=== PATIENT | female | born 1995 | race American Indian/Alaskan Native ===

== ENCOUNTER 2017-03-10 08:18 | Emergency (ER) | payer BC, OTHER ==
[2017-03-10 08:30] VITALS: BMI 35.0
[2017-03-10 08:32] VITALS: TEMP 98.4
--- NOTE | 2017-03-10 09:16 | ED PDOC ---
Arrival/HPI - General Chief Complaint: Upper Extremity Problem/Injury Time Seen by Provider: 03/10/17 09:08 Historian: Patient - History of Present Illness Narrative History of Present Illness (Text): 03/10/17 09:08 A 21 year old female presents to the emergency department complaining of pain to 2nd digit on right hand after injury last night. Patient reports she slammed her finger in the car door. She states this morning pain worsened and describes it as a constant throbbing sensation. Patient notes decreased range of motion but denies any other injuries, fever, nausea, vomiting, diarrhea, abdominal pain , chest pain, shortness of breath or any other complaints. PMD: Dr. Harley Time/Duration: Other (Last night) Symptom Course: Worsening Quality: Other Context: Other Past Medical History - Provider Review Nursing Documentation Reviewed: Yes - Infectious Disease Hx of Infectious Diseases: None - Tetanus Immunization Tetanus Immunization: Unknown - Past Medical History Past Medical History: No Previous - Cardiac Hx Cardiac Disorders: No - Pulmonary Hx Respiratory Disorders: No - Neurological Hx Neurological Disorder: No - HEENT Hx HEENT Disorder: No - Renal Hx Renal Disorder: No - Endocrine/Metabolic Hx Endocrine Disorders: No - Hematological/Oncological Hx Blood Disorders: No - Integumentary Hx Dermatological Disorder: No - Musculoskeletal/Rheumatological Hx Musculoskeletal Disorders: No - Gastrointestinal Hx Gastrointestinal Disorders: No - Genitourinary/Gynecological Hx Genitourinary Disorders: No Other/Comment: cyst - Psychiatric Hx Psychophysiologic Disorder: No Hx Substance Use: No - Past Surgical History Past Surgical History: No Previous - Surgical History Hx Section: Yes (2011) Other/Comment: cyst removal - Anesthesia Hx Anesthesia: Yes Hx Anesthesia Reactions: No Hx Malignant Hyperthermia: No - Suicidal Assessment Feels Threatened In Home Enviroment: No Family/Social History - Physician Review Nursing Documentation Reviewed: Yes Family/Social History: No Known Family HX Smoking Status: Light Smoker < 10 Cigarettes Daily Hx Alcohol Use: No Hx Substance Use: No Hx Substance Use Treatment: No Allergies/Home Meds Allergies/Adverse Reactions: Allergies latex Allergy (Verified 03/10/17 08:31) SWELLING Home Medications: Home Meds Medication Instructions Recorded Confirmed Vit Calc,Iron,Folic 1 tab PO DAILY 03/10/17 03/10/17 [ Vitamins] Review of Systems - Physician Review All systems were reviewed & negative as marked: Yes - Review of Systems Constitutional: absent: Fevers Respiratory: absent: SOB Cardiovascular: absent: Chest Pain Gastrointestinal: absent: Abdominal Pain, Diarrhea, Nausea, Vomiting Musculoskeletal: Other (2nd digit pain on right hand, decreased ROM) Physical Exam - Physical Exam Narrative Physical Exam (Text): Head: Atraumatic. Normocephalic. Neck: Supple. Full ROM. Cardiovascular: Regular rate. Regular rhythm. Cap refill less than 2 seconds to hand digits. Pulmonary/Chest: No evidence of respiratory distress. Back: No CVA tenderness. Extremities: No wrist pain. No pain to right first, third, fourth or fifth digits. No subungual hematoma. Pain on palpation to PIP and DIP joint, no MCP joint pain. No deformity. Pain with movement as DIP and PIP joint but able to lift against resistance. Skin: Skin is warm and dry. No laceration. Neurological: Alert, awake, and oriented. Median/radial/ulnar motor and sensory function intact, sensation intact to light touch, two point discrimination in distal finger right hand. Psychiatric: Good eye contact. Normal interaction, affect, and behavior. Vital Signs Reviewed: Yes Vital Signs Temp Pulse Resp BP Pulse Ox 03/10/17 08:31 98.4 F 76 15 135/86 100 Temperature: Afebrile Blood Pressure: Normal Pulse: Regular Respiratory Rate: Normal Appearance: Positive for: Well-Appearing, Non-Toxic, Comfortable Pain Distress: None Mental Status: Positive for: Alert and Oriented X 3 Medical Decision Making ED Course and Treatment: 03/10/17 09:08 Impression: A 21 year old female with pain to 2nd digit on right hand after injury. Patient notes decreased ROM. Differential Diagnosis included but are not limited to: Sprain vs. Fracture Plan: -- Right hand 2nd digit xray -- Reassess and disposition Progress Notes: Report Date : 03/10/2017 09:51:11 PROCEDURE: Right Index finger radiographs. Dictator : Deana Jones MD IMPRESSION: No acute fracture or dislocation. Patient with no large subungal hematoma noted. Nail base is intact with no disruption or active bleeding. She has focal pain to PIP and DIP joint, limited ROM. No obvious deformity noted however. Limitations of xray reviewed with patient, stressed need for ortho follow-up to evaluate for fracture or ligamentous injury. Patient with dressing applied to DIP joint as well as finger splint, advised rest, no strenuous activity, and orthopedic re-evaluation. 03/10/17 10:07 - RAD Interpretation Radiology Orders: 03/10/17 09:18 HAND RIGHT 2ND DIGIT (FINGER) [RAD] Stat - Scribe Statement The provider has reviewed the documentation as recorded by the Scribe Nohemy Archibald Provider Scribe Attestation: All medical record entries made by the Scribe were at my direction and personally dictated by me. I have reviewed the chart and agree that the record accurately reflects my personal performance of the history, physical exam, medical decision making, and the department course for this patient. I have also personally directed, reviewed, and agree with the discharge instructions and disposition. Disposition/Present on Arrival - Present on Arrival Any Indicators Present on Arrival: No History of DVT/PE: No History of Uncontrolled Diabetes: No Urinary Catheter: No History of Decub. Ulcer: No History Surgical Site Infection Following: None - Disposition Have Diagnosis and Disposition been Completed?: Yes Diagnosis: Finger contusion Disposition: HOME/ ROUTINE Disposition Time: 09:45 Patient Plan: Discharge Patient Problems: Current Active Problems Problem Status Diagnosed Finger contusion Acute Condition: GOOD Discharge Instructions (ExitCare): Finger Fracture (ED) Additional Instructions: You have a finger injury. Despite your xrays revealing no fracture today, if you have persistent pain or difficulty, a broken bone or ligament injury cannot be excluded, you MUST get rechecked by an orthopedic physician. Wear splint as directed. For any persistent pain, any swelling, any redness, any bleeding, any persistent difficulty bending, get rechecked. Follow-up with your physician or and orthopedic doctor in 1-2 days. Take Tylenol or Motrin for pain. Referrals: Freddie Harley [Primary Care Provider] - Follow up with primary [facility] [Outside] - Follow up with primary [facility] [Outside] - Follow up with primary Forms: WORK NOTE
--- NOTE | 2017-03-10 09:52 | RAD ---
PROCEDURE: Right Index finger radiographs. HISTORY: crush injury to distal second finger COMPARISON: None. TECHNIQUE: AP radiograph of the right hand, as well as spot oblique and lateral images of index finger were obtained. FINDINGS: RIGHT INDEX FINGER: Normal right index finger, without acute fracture or focal lesion. Remainder of the right hand (as seen on the AP view) grossly intact. JOINTS: Normal. SOFT TISSUES: Normal. OTHER FINDINGS: None. IMPRESSION: No acute fracture or dislocation.
[2017-03-10 10:18] VITALS: BP 122/73; PULSE 78; RESP 16; O2SAT 99
== END 2017-03-10 10:17 | disposition home or self-care (01) ==
LOC: ED 08:18
DX: S60.021A Contusion of right index finger without damage to nail, initial encounter (principal); W23.0XXA Caught, crushed, jammed, or pinched between moving objects, initial encounter; Y92.89 Other specified places as the place of occurrence of the external cause

== ENCOUNTER 2017-05-23 22:12 | Emergency (ER) | payer BC ==
[2017-05-23 22:45] VITALS: BMI 35.5
[2017-05-23 23:13] VITALS: RESP 20; TEMP 97.9
[2017-05-23 23:47] LABS: URINE BILIRUBIN NEGATIVE (NEGATIVE); URINE BLOOD LARGE (NEGATIVE); URINE GLUCOSE (UA) NEGATIVE (NEGATIVE); URINE LEUKOCYTE ESTERASE NEGATIVE Leu/uL (NEGATIVE); URINE NITRATE NEGATIVE (NEGATIVE); URINE PROTEIN NEGATIVE mg/dL (<30 mg/dL)
[2017-05-23 23:52] LABS: URINE APPEARANCE SL CLOUDY (CLEAR); URINE COLOR YELLOW (YELLOW)
[2017-05-23 23:57] LABS: BASO # 0.05 K/mm3 (0.0-2.0); BASO % 0.6 % (0.0-3.0); EOS # 0.3 (0.0-0.7); EOS % 2.8 % (1.5-5.0); GRAN # 4.97 (1.4-6.5); GRAN % 56.4 % (50.0-68.0); HEMOGLOBIN 12.3 gm/dL (12.0-16.0); LYMPH # 2.9 (1.2-3.4); LYMPH % 32.6 % (22.0-35.0); MEAN CELL VOLUME 80.5 fL (80.0-105.0); MEAN CORPUSCULAR HEMOGLOBIN 26.3 pg (25.0-35.0); MEAN CORPUSCULAR HGB CONC 32.7 g/dl (31.0-37.0); MEAN PLATELET VOLUME 9.6 fl (7.0-11.0); MONO # 0.7 (0.1-0.6); MONO % 7.6 % (1.0-6.0); PLATELET COUNT 372 10^3/uL (120.0-450.0); RBC 4.67 10^6/uL (3.5-6.1); RED CELL DISTRIBUTION WIDTH 14.6 % (11.5-14.5); WHITE BLOOD COUNT 8.8 10^3/ul (4.5-11.0)
--- NOTE | 2017-05-24 00:02 | ED PDOC ---
Arrival/HPI <Loki Perez - Last Filed: 05/24/17 01:00> - General Historian: Patient <Yessenia Honeycutt PA-C - Last Filed: 05/24/17 18:31> - General Chief Complaint: Female Genitourinary Time Seen by Provider: 05/23/17 22:48 - History of Present Illness Narrative History of Present Illness (Text): 05/23/17 23:59 Patient is ~ 8 weeks ,reports 1 day history of vaginal bleeding, with crampy lower abdominal pain which started at 3 PM this afternoon. Otherwise: (- ) N/V, (-) fever, (-) urinary symptoms, (-) prior salpingitis, (-) prior ectopic . Has (+) care and (+) prior OB ultrasound - one week ago at her OB doctor's office and was told that she may miscarry soon. OB Abel (Yessenia Honeycutt PA-C) Past Medical History - Provider Review Nursing Documentation Reviewed: Yes - Infectious Disease Hx of Infectious Diseases: None - Psychiatric Hx Substance Use: No - Surgical History Hx Section: Yes (x1) - Anesthesia Hx Anesthesia: Yes Hx Anesthesia Reactions: No Hx Malignant Hyperthermia: No <Yessenia Honeycutt PA-C - Last Filed: 05/24/17 18:31> Family/Social History - Physician Review Nursing Documentation Reviewed: Yes Family/Social History: No Known Family HX Smoking Status: Never Smoked Hx Alcohol Use: No Hx Substance Use: No <Yessenia Honeycutt PA-C - Last Filed: 05/24/17 18:31> Allergies/Home Meds <Loki Perez - Last Filed: 05/24/17 01:00> <Yessenia Honeycutt PA-C - Last Filed: 05/24/17 18:31> Allergies/Adverse Reactions: Allergies No Known Allergies Allergy (Verified 05/23/17 22:36) Home Medications: Home Meds Medication Instructions Recorded Confirmed No Known Home Med 05/23/17 05/23/17 Review of Systems - Review of Systems Constitutional: Normal. absent: Fatigue, Weight Change, Fevers Respiratory: Normal. absent: SOB, Cough, Sputum Cardiovascular: Normal. absent: Chest Pain, Palpitations, Edema Gastrointestinal: Normal, Abdominal Pain. absent: Stool Changes, Appetite Changes Genitourinary Female: Normal, Vaginal Bleeding. absent: Dysuria, Frequency, Vaginal Discharge Skin: Normal. absent: Rash, Pruritis, Skin Lesions <Yessenia Honeycutt PA-C - Last Filed: 05/24/17 18:31> Physical Exam <Loki Perez - Last Filed: 05/24/17 01:00> <Yessenia Honeycutt PA-C - Last Filed: 05/24/17 18:31> - Physical Exam Narrative Physical Exam (Text): 05/24/17 00:00 GENERAL APPEARANCE: Patient is awake, alert, oriented x 3, in no acute distress. SKIN: Warm, dry; (-) cyanosis. EYES: (-) conjunctival pallor. ENMT: Mucous membranes moist. NECK: (-) tenderness, (-) stiffness, (-) lymphadenopathy. CHEST AND RESPIRATORY: (-) rales, (-) rhonchi, (-) wheezes; breath sounds equal bilaterally. HEART AND CARDIOVASCULAR: (-) irregularity; (-) murmur, (-) gallop. ABDOMEN AND GI: Soft; (-) tenderness. EXTREMITIES: (-) deformity. NEURO AND PSYCH: Mental status as above; (-) focal findings. (Yessenia Honeycutt PA-C) Vital Signs Temp Pulse Resp BP Pulse Ox 05/24/17 01:11 70 20 143/69 100 05/23/17 22:38 97.9 F 73 20 144/76 99 Medical Decision Making <Loki Perez - Last Filed: 05/24/17 01:00> <Yessenia Honeycutt PA-C - Last Filed: 05/24/17 18:31> ED Course and Treatment: 05/24/17 00:01 Patient is ~ 8 weeks ,reports 1 day history of vaginal bleeding, with crampy lower abdominal pain which started at 3 PM this afternoon. Based on history likely threatened miscarriage. Plan: -- Labs -- Urinalysis -- Reassess and disposition -- US TV 05/24/17 01:25 Lab results reviewed, hemoglobin is 12.3, hematocrit 37.6, potassium is 3.4, beta Quant is 1076, type and screen O+. Urinalysis showed positive blood but no evidence of infection. Transvaginal ultrasound : shows empty uterus with no IUP, no sac, endometrium measures 1.5 cm, +fluid in the cul-de-sac, ?small fluid in the cervix, as per smog technician. Lab and ultrasound results discussed the patient in great detail. Patient given a dose of KCl 40 mEq by mouth. Patient advised that she likely has a miscarriage and that she will need to follow up with her OB doctor in 2 days for reevaluation and follow-up. Patient states she fully agrees with and understands discharge instructions. States that she agrees with the plan and disposition. Verbalized and repeated discharge instructions and plan. I have given the patient opportunity to ask any additional questions. Follow up with OB physician in 1-2 days without fail. Return to the emergency room at any time for any new or worsening symptoms. (Yinka MELGOZA,Yessenia Arzola) - Lab Interpretations Lab Results: 05/23/17 23:43 05/23/17 23:43 Lab Results 05/24/17 01:16: Blood Type Confirm O POSITIVE 05/24/17 01:05: Blood Type O POSITIVE, Antibody Screen Negative, BBK History Checked No verified bt 05/23/17 23:43: Beta HCG, Quant 1076.20 H 05/23/17 23:43: Sodium 138, Potassium 3.4 L, Chloride 105, Carbon Dioxide 23, Anion Gap 13, BUN 11, Creatinine 0.9, Est GFR ( Amer) > 60, Est GFR (Non- Af Amer) > 60, Random Glucose 85, Calcium 9.2, Total Bilirubin 0.3, AST 31, ALT 34, Alkaline Phosphatase 50, Total Protein 7.6, Albumin 4.0, Globulin 3.5, Albumin/Globulin Ratio 1.1 05/23/17 23:43: WBC 8.8, RBC 4.67, Hgb 12.3, Hct 37.6, MCV 80.5, MCH 26.3, MCHC 32.7, RDW 14.6 H, Plt Count 372, MPV 9.6, Gran % 56.4, Lymph % (Auto) 32.6, [place] % (Auto) 7.6 H, Eos % (Auto) 2.8, Baso % (Auto) 0.6, Gran # 4.97, Lymph # 2.9, [place] # 0.7 H, Eos # 0.3, Baso # 0.05 05/23/17 23:26: Urine Color Yellow, Urine Appearance Sl cloudy, Urine pH 6.0, Ur Specific Ul[place] >= 1.030, Urine Protein Negative, Urine Glucose (UA) Negative, Urine Ketones Negative, Urine Blood Large H, Urine Nitrate Negative, Urine Bilirubin Negative, Urine Urobilinogen 1.0 H, Ur Leukocyte Esterase Negative, Urine RBC 2 - 5, Urine WBC 0 - 2, Ur Epithelial Cells 3 - 4, Urine Bacteria Small - RAD Interpretation Narrative RAD Interpretations (Text): 05/24/17 18:31 US TV : FINDINGS: The examination demonstrates no evidence of intrauterine in there is no intrauterine gestational sac identified. There is no endometrial fluid. There is questionable trace endocervical fluid. The uterus measures 11.1 x 5.8 x 8.2 cm. There is no uterine mass. The endometrium measures 15 mm in width. The right ovary measures 3.1 x 1.4 x 2.7 cm. Normal color flow is demonstrated. There is no mass identified. The left ovary is not visualized by transabdominal or transvaginal technique. There is small amount of free fluid seen in the cul-de-sac. IMPRESSION: No intrauterine gestation identified. Cannot exclude ectopic on the basis of this examination. There is no direct evidence of ectopic gestation. Questionable trace endocervical fluid. Small amount of fluid in the cul-de-sac common nonspecific. Preliminary interpretation of this examination was reported by [facility] at 1:39 a.m. on 05/24/2017. There is concurrence of this report with the preliminary interpretation. (Yinka MELGOZA,Yessenia Arzola) Radiology Orders: 05/23/17 22:48 OB TRANSVAGINAL [US] Stat - Medication Orders Current Medication Orders: Discontinued Medications Potassium Chloride (Potassium Chloride Oral Soln) 40 meq PO STAT STA Stop: 05/24/17 01:31 Last Admin: 05/24/17 01:47 Dose: 40 meq - PA / SETTLEMENT PROCESSOR / Resident Statement JOHANA has reviewed & agrees with the documentation as recorded. / has examined the patient and agrees with the treatment plan. <Loki Perez - Last Filed: 05/24/17 01:00> - PA / SETTLEMENT PROCESSOR / Resident Statement MD/DO has reviewed & agrees with the documentation as recorded. <Yessenia Honeycutt PA-C - Last Filed: 05/24/17 18:31> Disposition/Present on Arrival <Loki Perez - Last Filed: 05/24/17 01:00> - Present on Arrival Any Indicators Present on Arrival: No History of DVT/PE: No History of Uncontrolled Diabetes: No Urinary Catheter: No History of Decub. Ulcer: No History Surgical Site Infection Following: None - Disposition Have Diagnosis and Disposition been Completed?: Yes Disposition Time: :28 Patient Plan: Discharge <Yessenia Honeycutt PA-C - Last Filed: 05/24/17 18:31> - Disposition Diagnosis: Miscarriage Disposition: HOME/ ROUTINE Condition: STABLE Discharge Instructions (ExitCare): Spontaneous Miscarriage (ED) Print Language: AZERBAIJANI Additional Instructions: Thank you for letting us take care of you today. You were treated for miscarriage. The emergency medical care you received today was directed at your acute symptoms. Return to the Emergency Department if your symptoms worsen, do not improve, or if you have any other problems. Please contact your OB doctor in 2 days for re-evaluation and follow up and repeat beta quant levels. Bring any paperwork you were given at discharge with you along with any medications you are taking to your follow up visit. Our treatment cannot replace ongoing medical care by a primary care provider (PCP) outside of the emergency department. Thank you for allowing the [facility] team to be part of your care today. Referrals: PCP,NO [Primary Care Provider] - Follow up with primary Forms: WORK NOTE
[2017-05-24 00:03] LABS: URINE BACTERIA SMALL (NEG); URINE WBC 0 - 2 /hpf (0-6)
[2017-05-24 00:06] LABS: ALB/GLOB RATIO 1.1 (1.1-1.8); ALT/SGPT 34 U/L (7-56); AST/SGOT 31 U/L (15-39); BLOOD UREA NITROGEN 11 mg/dL (7-21); CALCIUM 9.2 mg/dL (8.4-10.5); GFR AFRICAN-AMERICAN > 60; GFR NON-AFRICAN AMERICAN > 60
[2017-05-24 01:11] VITALS: BP 143/69; PULSE 70; O2SAT 100
[2017-05-24] MEDS ORDERED: Potassium Chloride 20 mEq/15 ml LIQ UD PO STA (01:30)
--- NOTE | 2017-05-24 09:45 | US ---
PROCEDURE: Pelvic ultrasound examination HISTORY: vag bleed, 8 wks preg COMPARISON: Not available TECHNIQUE: Transabdominal and transvaginal FINDINGS: The examination demonstrates no evidence of intrauterine in there is no intrauterine gestational sac identified. There is no endometrial fluid. There is questionable trace endocervical fluid. The uterus measures 11.1 x 5.8 x 8.2 cm. There is no uterine mass. The endometrium measures 15 mm in width. The right ovary measures 3.1 x 1.4 x 2.7 cm. Normal color flow is demonstrated. There is no mass identified. The left ovary is not visualized by transabdominal or transvaginal technique. There is small amount of free fluid seen in the cul-de-sac. IMPRESSION: No intrauterine gestation identified. Cannot exclude ectopic on the basis of this examination. There is no direct evidence of ectopic gestation. Questionable trace endocervical fluid. Small amount of fluid in the cul-de-sac common nonspecific. Preliminary interpretation of this examination was reported by [employer] at 1:39 a.m. on 05/24/2017. There is concurrence of this report with the preliminary interpretation.
== END 2017-05-24 02:37 | disposition home or self-care (01) ==
LOC: ED 22:12 → MERGE 22:12 → ED 05-24 02:37
DX: O03.9 Complete or unspecified spontaneous abortion without complication (principal)